=== PATIENT | female | born 1990 | race Caucasian/White ===

== ENCOUNTER 2018-08-01 11:01 | Outpatient (CLI) | payer OTHER ==
[~2018-08-01] VITALS: Ht 162.6 cm; Wt 103.1 kg
[2018-08-01 11:27] VITALS: BP 120/70
[2018-08-01] MEDS ORDERED: PRENTAB9 PO (11:29)
[2018-08-01] MEDS ORDERED: LACTATED RINGER'S 1000 ML IV STA (11:52)
[2018-08-01] MEDS ORDERED: LR 1,000 ML IV SCH (11:52)
[2018-08-01 12:55] VITALS: BP 118/73
--- NOTE | 2018-08-02 17:57 | HPE ---
DATE OF ADMISSION: 08/01/2018 This is a 28-year-old 2, para 1, last menstrual period (LMP) 10/22/2017, estimated date of confinement (EDC) 08/23/2018 at 36 and 6 with a history of contractions. No vaginal loss or bleeding. Risk factors: Her body mass index (BMI) is 35.7. Her past history: June 2012 at 40 weeks - spontaneous vaginal delivery, male, 7 pounds 8 ounces. Labs are A+, HIV negative, hepatitis negative, RPR negative, rubella immune. Varicella immune. Pap is ASCUS. HPV negative. Urine was mixed ferny. Gonorrhea and chlamydia are negative. 1-hour glucose 106. Her 3-hour glucose was 94/97/87/90. GBS is pending. Urine is 1.020, pH 6 and negative. Blood pressure is 118/73, respirations 18, pulse 73 and temperature is 99.0. On evaluation, she does not appear in acute distress. There are [place] contractions noted, and there are accelerations noted. No decelerations. Moderate variability with a normal baseline. She was evaluated on admission to triage, and she was evaluated 3 hours later and basically no change in her cervical status or dilatation, or descent of the presenting part. She was high, posterior, 2 cm thick. No vaginal bleeding or vaginal loss. She was normocephalic, atraumatic. Neck: Full range of motion. Pupils equal and reactive to light. Distal pulses are symmetric. No evidence of deep vein thrombosis (DVT), pulmonary embolism (PE), or superficial phlebitis. Chest is clear bilaterally to bases. No wheezes or rhonchi. Abdomen: Soft. Four quadrant bowel sounds are noted. Nontender. Appropriate symphysis fundus height. She has no rashes, lesions or pruritus. No arthralgia or myalgia. No complaint of joint pain. No complaint of cough, wheezes, shortness of breath or dyspnea on exertion. No history of bruising or bleeding. Neuro complete. No incontinence, urgency or frequency. No nausea, vomiting, diarrhea or constipation. No diabetic issues. 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 Past medical and surgical: Unremarkable. Family history is noncontributory. She does not smoke, drink, abuse drugs. She is . There is no domestic violence and good support system. We planned on discharge undelivered with precautions. She has an appointment at 37 weeks. We told her to maintain that unless there is change, i.e. premature rupture of membranes (PPROM), bleeding or contractions that are 5-7 minutes apart, lasting 40-60 seconds. The patient expressed understanding. I answered all questions, discharged undelivered.
== END 2018-08-01 15:40 | disposition home or self-care (01) ==
LOC: M LDO 11:01
PROVIDERS: ATTEND Obstetrics & Gynecology
DX: O47.03 False labor before 37 completed weeks of gestation, third trimester (principal); Z3A.36 36 weeks gestation of pregnancy
CPT/HCPCS: 59025; G0378; G0463

== ENCOUNTER 2018-08-16 21:10 | Inpatient (IN) | payer OTHER ==
[~2018-08-16] VITALS: Ht 162.6 cm; Wt 106.0 kg
[~2018-08-16 21:10] MED LIST: PRENTAB9 PO
[2018-08-16 21:39] VITALS: BP 131/79
[2018-08-16] MEDS ORDERED: LR 1,000 ML IV SCH (22:35)
[2018-08-16] MEDS ORDERED: LACTATED RINGER'S 1000 ML IV STA (22:35)
--- NOTE | 2018-08-16 22:41 | HPEPDOC ---
Obstetrical History & Physical General Date of Admission Aug 16, 2018 at 22:05 History of Present Illness 28 y/o at 39+0 with LOF since 1999, srill happening. Irreg ctx's all day. Pos FM, no VB. Preg uncomplicated. Care Care: Good Care Dating Final EDC by: LMP, 2nd trimester (US) Past Medical History Past Obstetrical History : Type of Delivery: Spontaneous Vaginal Del. 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 Past Medical History Medical History denies Surgical History: Denies/None Family History Significant Family History: No pertinent family hx Social History Marital Status: Family situation: Spouse/partner home Psychosocial History: No pertinent psych hx * Smoker: non-smoker Alcohol: Denies Drugs: denies Abuse Violence Screening Have you been hit/kicked/slapp: No Have you been sexually assault: No Imunizations Tdap status: current Influenza Status: declined Allergies Coded Allergies: No Known Allergies (Unverified , 08/16/18) Medications Scheduled Multivitamins/ ( 27-0.8 mg) 1 Tab Tab, 1 TAB PO DAILY Physical Examination Physical Examination GENERAL: Alert and oriented times three. ABDOMEN: Gravid and non-tender to touch. FETUS: Is vertex (VTX) by sterile vaginal examination (SVE), LOF with check, 4-5/75/-2 EXTREMITIES: No edema. Vital Signs/I&O Vital Signs Date Time Temp Pulse Resp B/P (MAP) Pulse Ox O2 Delivery O2 Flow Rate FiO2 08/16/18 21:39 99.1 92 18 131/79 (96) Laboratory Data 24H LABS Laboratory Tests 2 08/16/18 22:18: Serology Scanned Report Hepatitis B Testing Urine Culture: Contaminated Pertinent Laboratoy Data Blood Type: A+ RBC Antibody Screen: Negative HIV: Negative Hepatitis B: Negative Hepatitis C: Unknown Rapid Plasma Reagin: Nonreactive Rubella: Immune Varicella: Immune Chlamydia/Gonorrhea: Negative Group B Streptococcus: Negative Quad Screen Test: Negative Cystic Fibrosis: Unknown Anatomy Ultrasound Placenta Location: Posterior Normal Anatomy: Yes Placenta Previa: No Assessment Variability: Moderate Accelerations: Positive Decelerations: None Tocometer Contractions: Yes Frequency: regular Duration: greater than 60 seconds Strength: palpated as moderate Assessment/Plan Assessment SROM 2 hrs ago. Fav cx. Plan on recheck in 3-4 hrs, sooner prn. If no change then will add pitocin Plan Admit and orient. 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 Diet: clrs Group B Streptococcus (GBS) neg Labs and intravenous (IV) per unit protocol. Counseled on Pitocin and induction of labor (IOL). Lactated Ringers (LR): Bolus 1000 mL prior to epidural if desires, then at 125 mL/hr. Anticipate normal spontaneous delivery () C-S as appropriate. Sessions SESSIONS,JASWINDER Law MD Aug 16, 2018 22:41
[2018-08-16 23:35] LABS: HEMOGLOBIN 9.8 g/dl (12.0-15.5); MEAN CORPUSCULAR HEMOGLOBIN 24.5 pg (27.0-33.0); MEAN CORPUSCULAR HGB CONC 30.6 g/dl (32.0-36.5); PLATELET COUNT, AUTOMATED 256 10^3/uL (150-450); WHITE BLOOD COUNT 10.6 10^3/uL (4.0-10.0)
[2018-08-17] VITALS (22 sets, daily range): BP systolic 104–142; BP diastolic 51–89
[2018-08-17] MEDS ORDERED: FENTANYL 2MCG/ML ROPIVACAINE 0.2% IN 0.9% NACL 100ML IVBAG As Ordered ONE (00:50)
[2018-08-17] MEDS ORDERED: EPIDURAL COMMENT XX SCH (02:15)
[2018-08-17] MEDS ORDERED: ePHEDrine SULFATE 25 MG/5 ML(5MG/ML) SYRINGE IV PRN (02:15)
[2018-08-17] MEDS ORDERED: diphenhydrAMINE INJ 50MG/ML VIAL (J1200) IV PRN (02:15)
[2018-08-17] MEDS ORDERED: NALOXONE INJ 0.4 MG/1 ML VIAL (J2310) IV PRN (02:15)
[2018-08-17] MEDS ORDERED: EPIDURAL/PCA KEYS XX PRN (02:15)
[2018-08-17] MEDS ORDERED: LACTATED RINGER'S 1000 ML IV PRN (02:15)
[2018-08-17] MEDS ORDERED: FENTANYL/ROPIVACAINE/NACL BAG 100 ML EPIDURAL SCH (02:15)
[2018-08-17] MEDS ORDERED: REFRIGERATOR IV KEYS XX PRN (02:15)
[2018-08-17] MEDS ORDERED: ONDANSETRON 4MG/2ML VIAL (J2405) IV PRN (02:15)
[2018-08-17] MEDS ORDERED: OXYTOCIN 30 UNITS IN 0.9% NaCl 500ML IV BAG (J2590) As Ordered ONE (03:35)
[2018-08-17] MEDS ORDERED: OXYTOCIN DRIP 30 UNITS in APPROPRIATE DILUENT 1 EA IV SCH (03:59)
[2018-08-17] MEDS ORDERED: METOCLOPRAMIDE INJ 10MG/2ML VIAL (J2765) IV PRN (04:00)
[2018-08-17] MEDS ORDERED: IBUPROFEN 800 MG TAB PO PRN (04:00)
[2018-08-17] MEDS ORDERED: DIBUCAINE 1% OINTMENT 30GM TOP PRN (04:00)
[2018-08-17] MEDS ORDERED: ACETAMINOPHEN TAB 650MG DOSE (2X325MG) PO PRN (04:00)
[2018-08-17] MEDS ORDERED: MEASLES,MUMPS,RUBELLA VACCINE INJ (MMR-II) (90707) SC SCH (04:00)
[2018-08-17] MEDS ORDERED: RHOGAM 300 MCG (1500 IU) INJ (J2790) IM SCH (04:00)
--- NOTE | 2018-08-17 04:05 | DNPDOC ---
[facility] Delivery Note Delivery Note DATE OF DELIVERY: [id number] PREDELIVERY DIAGNOSIS: 39 1/7 weeks' gestation and labor. POST DELIVERY DIAGNOSIS: Delivered. PROCEDURE: Spontaneous vaginal delivery TRANSPORTATION DESIGN ENGINEER: Dr. Silva ANESTHESIA: Epidural ESTIMATED BLOOD LOSS: 200 mL. FINDINGS: 6 pound 5 ounce male , Score 9/9, nuchal cord times 1, loose DELIVERY SUMMARY: Called to room, fully with FHR 90-100's, was previously 8 cm after epidural. Now C/C/+2/JEFFERY. Started pushing and great effort and mvmt, baby nurse called. No delay of the vtx, restituted to LOT. No delay of either sh oulder. Vigorous infant to mother's abd. Cord C.C by FOB. Cord blood. Placenta intact. Fundus firm, pit going at 999. No lacs to vag/per/cx. Uncomplicated. Asiya SILVA,JASWINDER Law MD Aug 17, 2018 04:05
[2018-08-17] MEDS: DOCUSATE SODIUM 100 MG CAP PO SCH ×2 (07:53→21:43)
[2018-08-17] MEDS: PRENATAL VITAMINS CHEWABLE TABLET PO SCH (07:53)
[2018-08-18 06:00] VITALS: BP 117/71
[2018-08-18] MEDS: PRENATAL VITAMINS CHEWABLE TABLET PO SCH (09:35)
[2018-08-18] MEDS: DOCUSATE SODIUM 100 MG CAP PO SCH (09:35)
[2018-08-18] MEDS ORDERED: MAPA500T2 PO (09:58)
[2018-08-18] MEDS ORDERED: COLA100C5 PO (09:58)
[2018-08-18] MEDS ORDERED: IBUP-1114 PO (09:58)
[2018-08-18] MEDS ORDERED: NUPE1OIN2 TOP (09:58)
--- NOTE | 2018-08-18 16:06 | DSES ---
DATE OF ADMISSION: 08/16/2018 DATE OF DISCHARGE: 08/18/2018 A 28-year-old 2,, now para 2, admitted with 39 weeks of gestation, loss of fluid and contractions, had a spontaneous vaginal delivery with epidural in place, live male , 6 pounds 5 ounces. Her admitting hemoglobin was 9.8, hematocrit 32.0 and platelets are 256. VITAL SIGNS ON DISCHARGE: Her blood pressure was 117/71, respirations 16, pulse 72, temperature 98.3. We discussed phlebitis, cystitis, mastitis, endometritis and cellulitis, diet, exercise, pain management, perineal, breast and wound care. The patient is going home with discharge medications. The rest of the examination unremarkable. Normocephalic, atraumatic. Neck: Full range of motion. Pupils equal and reactive to light. Distal pulses symmetric. No evidence of deep venous thrombosis (DVT), pulmonary embolism (PE), superficial phlebitis. Chest is clear bilaterally to bases. No wheezes or rhonchi. Abdomen: Soft. Uterus two below. Lochia is moderate. Perineum is intact. Four quadrant bowel sounds are noted. No rashes, lesions or pruritus. No arthralgia, myalgia. No complaint of cough, wheeze, shortness of breath or dyspnea on exertion. In summary, we have a term gestation, delivered a live male infant, , planned on discharge today.
== END 2018-08-18 14:00 | disposition home or self-care (01) | DRG 807 ==
LOC: M LDO 21:10 → M LDI 22:05 → M OBS 08-17 06:09
PROVIDERS: ADMIT Obstetrics & Gynecology; ATTEND Obstetrics & Gynecology
PROC: 10E0XZZ Delivery of Products of Conception, External Approach (ICD-10-PCS; principal; 2018-08-17)
DX: O80 Encounter for full-term uncomplicated delivery (principal); Z37.0 Single live birth; Z3A.39 39 weeks gestation of pregnancy

== ENCOUNTER 2018-08-26 05:44 | Emergency (ER) | payer OTHER ==
[~2018-08-26] VITALS: Ht 162.6 cm; Wt 106.8 kg
[~2018-08-26 05:44] MED LIST changes: +COLA100C5 PO; +IBUP-1114 PO; +MAPA500T2 PO; +NUPE1OIN2 TOP
[2018-08-26 06:28] LABS: BASO # 0.1 10^3/uL (0.0-0.2); BASO % 0.7 % (0.0-1.0); EOS # 0.2 10^3/uL (0.0-0.50); EOS % 2.8 % (0.0-3.0); HEMATOCRIT 39.9 % (36.0-47.0); HEMOGLOBIN 12.2 g/dl (12.0-15.5); LYMPH % 36.7 % (24.0-44.0); MEAN CORPUSCULAR HEMOGLOBIN 24.4 pg (27.0-33.0); MEAN CORPUSCULAR HGB CONC 30.6 g/dl (32.0-36.5); MONO # 0.5 10^3/uL (0.0-0.8); MONO % 5.8 % (0.0-5.0); NEUTROPHILS # 4.4 10^3/uL (1.8-7.7); NEUTROPHILS % 53.6 % (36.0-66.0); PLATELET COUNT, AUTOMATED 342 10^3/uL (150-450); RED BLOOD COUNT 4.99 10^6/uL (4.00-5.40); WHITE BLOOD COUNT 8.2 10^3/uL (4.0-10.0)
[2018-08-26 06:39] LABS: ALBUMIN 3.5 GM/DL (3.2-5.2); ALT/SGPT 44 U/L (12-78); BILIRUBIN,DIRECT 0.1 MG/DL (0.0-0.2); BILIRUBIN,TOTAL 0.4 MG/DL (0.2-1.0); BLOOD UREA NITROGEN 12 MG/DL (7-18); CALCIUM LEVEL 8.6 MG/DL (8.5-10.1); CARBON DIOXIDE LEVEL 23 MEQ/L (21-32); CHLORIDE LEVEL 108 MEQ/L (98-107); CREATININE FOR GFR 0.94 MG/DL (0.55-1.30); GLOMERULAR FILTRATION RATE > 60.0 (>60); GLUCOSE, FASTING 81 MG/DL (70-100); LIPASE 111 U/L (73-393); POTASSIUM SERUM 3.9 MEQ/L (3.5-5.1); SODIUM LEVEL 141 MEQ/L (136-145); TOTAL PROTEIN 7.7 GM/DL (6.4-8.2)
[2018-08-26 06:46] LABS: AMORPHOUS SEDIMENT SMALL (NEGATIVE); APPEARANCE, URINE HAZY (CLEAR); BACTERIA, URINE AUTO 1+ (NEGATIVE); BILIRUBIN, URINE AUTO NEGATIVE (NEGATIVE); BLOOD, URINE BLOOD 2+ (NEGATIVE); COLOR, URINE YELLOW (YELLOW); GLUCOSE, URINE (UA) AUTO NEGATIVE (NEGATIVE); KETONE, URINE AUTO NEGATIVE (NEGATIVE); LEUKOCYTE ESTERASE, URINE AUTO 2+ (NEGATIVE); MUCUS, URINE SMALL (NEGATIVE); NITRITE, URINE AUTO NEGATIVE (NEGATIVE); PROTEIN, URINE AUTO NEGATIVE (NEGATIVE); RBC, URINE AUTO 2 /HPF (0-3); SPECIFIC GRAVITY URINE AUTO 1.021 (1.002-1.035); SQUAMOUS EPITHELIAL CELL UR AU 2 /HPF (0-6); UROBILINOGEN, URINE AUTO 0.2 mg/dL (0.0-2.0); WBC, URINE AUTO 8 /HPF (0-3)
--- NOTE | 2018-08-26 07:39 | REPVR ---
EXAM: US Pelvis Complete, Transabdominal and US Duplex Artery or Vein, Ovaries, Limited EXAM DATE/TIME: 08/26/2018 6:49 AM CLINICAL HISTORY: 28 years old, female; Pain; Pelvic pain; Additional info: Post LLQ pain TECHNIQUE: Real-time transabdominal pelvic ultrasound with image documentation. Real-time duplex ultrasound scan of the arterial or venous flow of the ovaries with B-mode, color Doppler flow and spectral waveform analysis. Complete Pelvis, Limited Duplex. COMPARISON: No relevant prior studies available. FINDINGS: Uterus/cervix: uterus measuring 12.9 x 6.9 x 8.9 cm. No discrete myometrial mass. The endometrial stripe is normal in thickness measuring 3.8 mm. Right adnexa: The right ovary measures 4.0 x 1.5 x 2.2 cm and is unremarkable in appearance. There is Doppler flow present. Peak systolic velocity 10 cm/s. RI 0.48. Left adnexa: The left ovary measures 2.7 x 3.0 x 1.6 cm and is unremarkable in appearance. There is Doppler flow present. Peak systolic velocity 11.3 cm/sec. RI 0.58. No adnexal masses. Free fluid: No evidence of free fluid. Bladder: Not visualized. IMPRESSION: 1. No acute abnormalities are identified. 2. appearance of the uterus. Normal endometrial stripe. 3. Unremarkable appearance of the ovaries. No sonographic evidence of torsion. Electronically signed by: Darwin Raza On 08/26/2018 07:38:52 AM
[2018-08-26 08:30] VITALS: BP 137/81
== END 2018-08-26 08:32 | disposition home or self-care (01) ==
LOC: EDBD 05:44 → M ED 05:44
DX: O90.89 Other complications of the puerperium, not elsewhere classified (principal); R10.31 Right lower quadrant pain

== ENCOUNTER 2018-09-26 09:44 | Emergency (ER) | payer OTHER ==
[~2018-09-26] VITALS: Ht 162.6 cm; Wt 86.4 kg
[2018-09-26] MEDS ORDERED: COLA100C5 PO (10:04)
--- NOTE | 2018-09-26 10:18 | REP ---
Clinical: Acute chest pain . Comparison: None . Technique: PA and lateral. Findings: The mediastinum and cardiac silhouette are normal. The lung campos are clear and without acute consolidation, effusion, or pneumothorax. The skeletal structures are intact and normal. Impression: 1. No acute cardiopulmonary process. Electronically Signed by Darwin Shafer MD 09/26/2018 10:09 A
[2018-09-26] MEDS ORDERED: ISOVUE-370 76% 100ML VIAL (Q9967) As Ordered ONE (11:02)
--- NOTE | 2018-09-26 11:26 | REP ---
Clinical: Acute chest pain. Technique: Axial contrast enhanced images from the thoracic inlet to the upper abdomen using 100 ml Isovue 370 intravenous contrast material with coronal and sagittal re-formations. Findings: Satisfactory enhancement of the pulmonary vasculature is achieved and no filling defects are identified to suggest pulmonary embolus. Thoracic aorta is normal caliber without aneurysm or dissection. Heart and pericardium are normal. Bilateral lung campos are well aerated and clear without acute pulmonary parenchymal consolidation or atelectasis. No nodule or mass lesion. No pleural effusion/reaction. No pneumothorax. No adenopathy. Impression: No evidence for pulmonary embolus. No acute pleuroparenchymal or mediastinal process. Electronically Signed by Darwin Shafer MD 09/26/2018 11:18 A
[2018-09-26 11:30] VITALS: BP 117/71
--- NOTE | 2018-09-26 18:05 | ECGEPIP ---
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
== END 2018-09-26 11:39 | disposition home or self-care (01) ==
LOC: M ED 09:44 → EDBD 09:44 → M ED 11:39
DX: R07.9 Chest pain, unspecified (principal); K21.9 Gastro-esophageal reflux disease without esophagitis; Z79.899 Other long term (current) drug therapy
CPT/HCPCS: 36415; 71046; 71275; 85379; 93005; 99284; Q9967

== ENCOUNTER 2018-11-08 16:38 | Emergency (ER) | payer OTHER ==
[~2018-11-08] VITALS: Ht 162.6 cm; Wt 92.7 kg
[2018-11-08 17:53] LABS: BASO % 0.3 % (0.0-1.0); EOS # 0.1 10^3/uL (0.0-0.50); EOS % 0.6 % (0.0-3.0); HEMATOCRIT 37.8 % (36.0-47.0); LYMPH # 1.9 10^3/uL (1.5-6.5); LYMPH % 16.7 % (24.0-44.0); MEAN CORPUSCULAR HEMOGLOBIN 27.6 pg (27.0-33.0); MEAN CORPUSCULAR HGB CONC 31.7 g/dl (32.0-36.5); MEAN CORPUSCULAR VOLUME 86.9 fl (80.0-96.0); MONO # 0.8 10^3/uL (0.0-0.8); MONO % 6.5 % (0.0-5.0); NEUTROPHILS # 8.7 10^3/uL (1.8-7.7); PLATELET COUNT, AUTOMATED 234 10^3/uL (150-450); RED BLOOD COUNT 4.35 10^6/uL (4.00-5.40); WHITE BLOOD COUNT 11.6 10^3/uL (4.0-10.0)
--- NOTE | 2018-11-08 18:00 | REP ---
CHEST: Single view. There is no evidence of acute infiltrate. No pleural effusion is seen. The heart is normal in size. The mediastinal silhouette is unremarkable. The visualized osseous structures are intact. IMPRESSION: No acute pulmonary disease. Electronically Signed by Troy Patrick MD 11/08/2018 07:55 P
[2018-11-08 18:27] LABS: ALBUMIN 3.5 GM/DL (3.2-5.2); ALT/SGPT 18 U/L (12-78); BILIRUBIN,DIRECT < 0.1 MG/DL (0.0-0.2); BILIRUBIN,TOTAL 0.3 MG/DL (0.2-1.0); BLOOD UREA NITROGEN 10 MG/DL (7-18); CALCIUM LEVEL 8.7 MG/DL (8.5-10.1); CARBON DIOXIDE LEVEL 29 MEQ/L (21-32); CHLORIDE LEVEL 108 MEQ/L (98-107); CK-MB VALUE MASS < 1.0 NG/ML (<3.6); CPK CREATINE PHOSPHOKINASE 132 U/L (26-192); CREATININE FOR GFR 0.92 MG/DL (0.55-1.30); GLOMERULAR FILTRATION RATE > 60.0 (>60); GLUCOSE, FASTING 90 MG/DL (70-100); LIPASE 123 U/L (73-393); MB/CK RELATIVE INDEX 0.76 (< OR =4); POTASSIUM SERUM 4.1 MEQ/L (3.5-5.1); SODIUM LEVEL 143 MEQ/L (136-145); TOTAL PROTEIN 7.1 GM/DL (6.4-8.2); TROPONIN I < 0.02 NG/ML (< 0.10)
--- NOTE | 2018-11-08 19:43 | REPVR ---
EXAM: US Abdomen Limited, Right Upper Quadrant EXAM DATE/TIME: 11/08/2018 6:40 PM CLINICAL HISTORY: 28 years old, female; Abdominal pain; Acute; Additional info: Ruq pain TECHNIQUE: Imaging protocol: Real-time ultrasound of the abdomen with image documentation. Examination was focused on the right upper quadrant. COMPARISON: No relevant prior studies available. FINDINGS: Liver: Normal. No masses. Gallbladder: The gallbladder is contracted and filled with stones. A positive sonographic Tilley's sign was reported. Common bile duct: Normal. No stones. No dilation. The common bile duct measures 0.4 cm. Pancreas: Mostly obscured due to overlying bowel gas. Right kidney: Normal. No mass. No hydronephrosis. The right kidney measures 11.8 x 3.5 x 4.8 cm. IMPRESSION: Cholelithiasis with positive sonographic Tilley's sign, findings are suggestive of acute cholecystitis. Clinical correlation and surgical consultation are recommended. Electronically signed by: Ashanti Jerez On 11/08/2018 19:42:49 PM
[2018-11-08 19:56] VITALS: BP 112/66
[2018-11-08] MEDS ORDERED: NORC1TAB7 PO (20:02)
[2018-11-08] MEDS ORDERED: AUGM875T28 PO (20:02)
--- NOTE | 2018-11-09 00:09 | ECGEPIP ---
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
== END 2018-11-08 20:20 | disposition home or self-care (01) ==
LOC: EDBD 16:38 → M ED 16:38
DX: K80.42 Calculus of bile duct with acute cholecystitis without obstruction (principal); R00.1 Bradycardia, unspecified; K21.9 Gastro-esophageal reflux disease without esophagitis; Z79.899 Other long term (current) drug therapy

== ENCOUNTER 2018-12-07 19:07 | Emergency (ER) | payer OTHER ==
[~2018-12-07] VITALS: Ht 162.6 cm; Wt 91.8 kg
[~2018-12-07 19:07] MED LIST changes: +AUGM875T28 PO; +NORC1TAB7 PO; +ZANTTAB PO
[2018-12-07] MEDS ORDERED: PANTOPRAZOLE 40MG INJ (PROTONIX) (C9113) IV ONE (20:00)
[2018-12-07] MEDS ORDERED: NS 1,000 ML IV ONE (20:00)
[2018-12-07] MEDS ORDERED: GI COCKTAIL 50ML BTL(HYOSCYAMINE/MAALOX/LIDOCAINE VISCOUS)(1:3:1) PO ONE (20:00)
[2018-12-07 20:47] LABS: BASO # 0.1 10^3/uL (0.0-0.2); BASO % 0.4 % (0.0-1.0); EOS # 0.1 10^3/uL (0.0-0.50); EOS % 0.9 % (0.0-3.0); HEMATOCRIT 39.1 % (36.0-47.0); HEMOGLOBIN 12.2 g/dl (12.0-15.5); LYMPH # 2.4 10^3/uL (1.5-6.5); MEAN CORPUSCULAR HEMOGLOBIN 27.7 pg (27.0-33.0); MEAN CORPUSCULAR HGB CONC 31.2 g/dl (32.0-36.5); MEAN CORPUSCULAR VOLUME 88.9 fl (80.0-96.0); MONO # 0.8 10^3/uL (0.0-0.8); MONO % 6.3 % (0.0-5.0); NEUTROPHILS # 8.8 10^3/uL (1.8-7.7); NEUTROPHILS % 72.1 % (36.0-66.0); PLATELET COUNT, AUTOMATED 223 10^3/uL (150-450); WHITE BLOOD COUNT 12.2 10^3/uL (4.0-10.0)
[2018-12-07] MEDS ORDERED: ONDANSETRON 4MG/2ML VIAL (J2405) As Ordered ONE (20:51)
[2018-12-07 20:55] LABS: HCG, SERUM QUALITATIVE NEGATIVE (NEGATIVE)
[2018-12-07 20:58] LABS: ALBUMIN 3.6 GM/DL (3.2-5.2); ALT/SGPT 17 U/L (12-78); BILIRUBIN,DIRECT < 0.1 MG/DL (0.0-0.2); BILIRUBIN,TOTAL 0.2 MG/DL (0.2-1.0); BLOOD UREA NITROGEN 10 MG/DL (7-18); CALCIUM LEVEL 9.7 MG/DL (8.5-10.1); CARBON DIOXIDE LEVEL 32 MEQ/L (21-32); CHLORIDE LEVEL 105 MEQ/L (98-107); CREATININE FOR GFR 0.85 MG/DL (0.55-1.30); GLOMERULAR FILTRATION RATE > 60.0 (>60); GLUCOSE, FASTING 86 MG/DL (70-100); LIPASE 117 U/L (73-393); POTASSIUM SERUM 4.4 MEQ/L (3.5-5.1); SODIUM LEVEL 140 MEQ/L (136-145); TOTAL PROTEIN 7.5 GM/DL (6.4-8.2)
[2018-12-07] MEDS ORDERED: ONDANSETRON 4MG/2ML VIAL (J2405) IV ONE (21:00)
[2018-12-07] MEDS ORDERED: KETOROLAC 30 MG/ML VIAL (J1885) As Ordered ONE (21:08)
[2018-12-07] MEDS ORDERED: KETOROLAC 30 MG/ML VIAL (J1885) IV ONE (21:15)
--- NOTE | 2018-12-07 22:08 | REPVR ---
EXAM: US Abdomen Limited, Right Upper Quadrant EXAM DATE/TIME: 12/07/2018 9:45 PM CLINICAL HISTORY: 28 years old, female; Abdominal pain; Acute; Additional info: Upper abd pain R/O cholecystitis TECHNIQUE: Imaging protocol: Real-time ultrasound of the abdomen with image documentation. Examination was focused on the right upper quadrant. COMPARISON: GALLBLADDER US 11/08/2018 6:30 PM FINDINGS: Liver: Unremarkable. Gallbladder: Cholelithiasis without gallbladder wall thickening or pericholecystic fluid. Positive sonographic Tilley's sign, as per the project builder. This is a nonspecific finding. Common bile duct: Common bile duct dilatation to approximately 8 mm. No stones. Pancreas: Unremarkable as visualized. Right kidney: No mass. No definite stones. No hydronephrosis. IMPRESSION: 1. Common bile duct dilatation to approximately 8 mm. Correlate with LFTs and, if clinically indicated, ERCP or MRCP. 2. Cholelithiasis without sonographic evidence of acute cholecystitis. Electronically signed by: Luis Alberto Shay On 12/07/2018 22:08:16 PM
[2018-12-07] MEDS ORDERED: MORPHINE 4 MG/ML 1ML VIAL/SYRINGE (J2270) IV ONE (22:45)
[2018-12-07] MEDS ORDERED: ISOVUE-370 76% 100ML VIAL (Q9967) As Ordered ONE (23:02)
--- NOTE | 2018-12-07 23:35 | REPVR ---
EXAM: CT Angiography Chest With Contrast EXAM DATE/TIME: 12/07/2018 10:41 PM CLINICAL HISTORY: 28 years old, female; Right-sided chest pain; Additional info: Right sided pain R/O pe TECHNIQUE: Imaging protocol: Axial computed tomographic angiography images of the chest with intravenous contrast using CT angiography protocol. Coronal and sagittal reformatted images were created and reviewed. 3D rendering: MIP reconstructed images were created and reviewed. Radiation optimization: All CT scans at this facility use at least one of these dose optimization techniques: automated exposure control; mA and/or kV adjustment per patient size (includes targeted exams where dose is matched to clinical indication); or iterative reconstruction. Contrast material: ISO; Contrast volume: 100 ml; Contrast route: AC; COMPARISON: CT ANGIO CHEST 09/26/2018 10:55 AM FINDINGS: Pulmonary arteries: Contrast opacification satisfactory. No intraluminal filling defect. Aorta: Unremarkable. No aneurysm or dissection. Lungs: Unremarkable. No consolidation. No mass. Pleural space: Unremarkable. No pneumothorax. No pleural effusion. Heart: Mild cardiomegaly. No pericardial effusion. Lymph nodes: No pathologically enlarged lymph nodes. Bones/joints: No acute osseous abnormality. Soft tissues: Unremarkable. IMPRESSION: 1. No CT evidence of pulmonary embolism. 2. Additional findings, as above. Electronically signed by: Luis Alberto Shay On 12/07/2018 23:35:42 PM
--- NOTE | 2018-12-08 00:01 | REPVR ---
EXAM: CT Abdomen and Pelvis With Contrast EXAM DATE/TIME: 12/07/2018 10:41 PM CLINICAL HISTORY: 28 years old, female; Abdominal pain; Localized; Right; Additional info: Right sided pain TECHNIQUE: Imaging protocol: Axial computed tomography images of the abdomen and pelvis with intravenous contrast. Coronal and sagittal reformatted images were created and reviewed. Radiation optimization: All CT scans at this facility use at least one of these dose optimization techniques: automated exposure control; mA and/or kV adjustment per patient size (includes targeted exams where dose is matched to clinical indication); or iterative reconstruction. Contrast material: ISO; Contrast volume: 100 ml; Contrast route: AC; COMPARISON: US PELVIC NON-OB COMPLETE 08/26/2018 6:41 AM FINDINGS: ABDOMEN: Liver: Unremarkable. Gallbladder and bile ducts: No radiodense gallstones. No biliary ductal dilatation. Pancreas: Unremarkable. Spleen: Unremarkable. Adrenals: Unremarkable. Kidneys and ureters: No mass. No radiodense calculi. No hydronephrosis. Stomach and bowel: No bowel wall thickening. No obstruction. No pneumatosis. Appendix: Normal. PELVIS: Bladder: Unremarkable. Reproductive: Probable involuting right ovarian corpus luteal cyst. ABDOMEN and PELVIS: Intraperitoneal space: No free fluid. No organized fluid collection. No free air. Bones/joints: No acute osseous abnormality. Soft tissues: Small, fat-containing umbilical hernia. Vasculature: Unremarkable. No aneurysm. Lymph nodes: Small mesenteric lymph nodes, nonspecific in appearance. No pathologically enlarged lymph nodes. IMPRESSION: 1. Probable involuting right ovarian corpus luteal cyst. 2. Additional findings, as above. Electronically signed by: Luis Alberto Shay On 12/08/2018 00:01:10 AM
[2018-12-08] MEDS ORDERED: ERTAPENEM SODIUM 1 GM in NS MINI-BAG PLUS 50 ML IV ONE (00:30)
[2018-12-08] MEDS ORDERED: AUGM875T28 PO (00:51)
[2018-12-08] MEDS ORDERED: ZOFR4TAB16 PO (01:17)
[2018-12-08 01:18] VITALS: BP 126/84
[2018-12-08] MEDS ORDERED: ONDANSETRON 4 MG ORAL DISINTEGRATING TAB (Q0162 PER 1MG) PO ONE (01:30)
--- NOTE | 2018-12-08 10:42 | ED PDOC ---
Post-Departure Follow-Up dr chowdhury faxed formal report of us for fu Vijay Cee MD Dec 08, 2018 10:42
== END 2018-12-08 01:23 | disposition home or self-care (01) ==
LOC: M ED 19:07
DX: K80.50 Calculus of bile duct without cholangitis or cholecystitis without obstruction (principal); Z72.0 Tobacco use; Z79.899 Other long term (current) drug therapy
CPT/HCPCS: 71275; 74177; 76705; 80048; 80076; 83690; 84703; 85025; 93041; 96374; 96375; 99284; C9113; J1335; J1885; J2270; J2405; Q0162; Q9967

== ENCOUNTER 2018-12-15 08:55 | Day surgery (SDC) | payer OTHER ==
[~2018-12-15] VITALS: Ht 162.6 cm; Wt 89.7 kg
[~2018-12-15 08:55] MED LIST changes: +AMPICILLIN SOD/SULBACTAM SOD 3 GM in D5W MINI-BAG PLUS 100 ML IV ONE; +LR 1,000 ML IV SCH; +ZOFR4TAB16 PO
[2018-12-15 10:01] LABS: URINE PREG TEST NEGATIVE (NEGATIVE)
[2018-12-15 10:08] LABS: ALBUMIN 4.1 GM/DL (3.2-5.2); ALT/SGPT 26 U/L (12-78); BILIRUBIN,TOTAL 0.5 MG/DL (0.2-1.0); BLOOD UREA NITROGEN 13 MG/DL (7-18); CARBON DIOXIDE LEVEL 26 MEQ/L (21-32); CHLORIDE LEVEL 110 MEQ/L (98-107); CREATININE FOR GFR 0.93 MG/DL (0.55-1.30); GLOMERULAR FILTRATION RATE > 60.0 (>60); GLUCOSE, FASTING 85 MG/DL (70-100); POTASSIUM SERUM 5.1 MEQ/L (3.5-5.1); SODIUM LEVEL 142 MEQ/L (136-145); TOTAL PROTEIN 7.7 GM/DL (6.4-8.2)
[2018-12-15] MEDS ORDERED: BUPIVACAINE HCL 0.25% 30 ML VIAL As Ordered ONE (11:02)
[2018-12-15] MEDS ORDERED: LIDOCAINE 1% SDV INJ 30 ML VIAL As Ordered ONE (11:02)
[2018-12-15] MEDS ORDERED: KETOROLAC 60 MG/2 ML VIAL (J1885) As Ordered ONE (11:29)
[2018-12-15] MEDS ORDERED: MIDAZOLAM INJ 2 MG/2 ML VIAL (J2250) As Ordered ONE (11:29)
[2018-12-15] MEDS ORDERED: PROPOFOL 200 MG/20 ML VIAL As Ordered ONE (11:29)
[2018-12-15] MEDS ORDERED: fentaNYL 250 MCG/5 ML INJECTION (J3010) As Ordered ONE (11:29)
[2018-12-15] MEDS ORDERED: ONDANSETRON 4MG/2ML VIAL (J2405) As Ordered ONE (11:29)
[2018-12-15] MEDS ORDERED: SUGAMMADEX SODIUM 500 MG/5 ML VIAL (BRIDION) As Ordered ONE (11:29)
[2018-12-15] MEDS ORDERED: LIDOCAINE 2% INJ 100 MG/5 ML SDV (FOR ANES.) As Ordered ONE (11:29)
[2018-12-15] MEDS ORDERED: METOCLOPRAMIDE INJ 10MG/2ML VIAL (J2765) As Ordered ONE (11:29)
[2018-12-15] MEDS ORDERED: ROCURONIUM BROMIDE 50 MG/5 ML VIAL As Ordered ONE (11:29)
[2018-12-15] MEDS ORDERED: dexameTHASONE 4 MG/ML 1ML VIAL (J1100) As Ordered ONE (11:29)
[2018-12-15] MEDS ORDERED: ACETAMINOPHEN 1000MG 100ML IV BTL (OFIRMEV) (J0131 PER 10MG) As Ordered ONE (11:30)
[2018-12-15] MEDS ORDERED: NORCO, ANEXSIA 5/325MG TABLET (HYDROcodone/ACETAMINOPHEN) PO PRN ×2 (13:45)
[2018-12-15] MEDS ORDERED: LR 1,000 ML IV SCH (13:45)
[2018-12-15] MEDS ORDERED: KETOROLAC 30 MG/ML VIAL (J1885) IV PRN (13:45)
[2018-12-15] MEDS ORDERED: fentaNYL 100 MCG/2 ML INJECTION (J3010) IV PRN (13:45)
[2018-12-15] MEDS ORDERED: oxyCODONE 5MG TAB PO PRN (13:45)
[2018-12-15] MEDS ORDERED: ONDANSETRON 4MG/2ML VIAL (J2405) IV PRN ×2 (13:45)
[2018-12-15 15:55] VITALS: BP 122/67
--- NOTE | 2018-12-17 09:43 | ROOPDOC ---
[facility] Report Of Operation Report of Operation DATE OF PROCEDURE: 12/15/18 PREPROCEDURE DIAGNOSES: Cholelithiasis, right upper quadrant abdominal pain. POSTPROCEDURE DIAGNOSES: Cholelithiasis, biliary colic, mild chronic ch olecystitis. PROCEDURE: Robotic-assisted laparoscopic cholecystectomy. SURGEON: Juan Mccurdy MD LEGAL ADMINISTRATOR: Yelitza House, MANAGER PRODUCT House assisted me with placement of the ports, management of the robotic tower and instruments on the field while I was at the surgeon's console, closure of the incisions. ANESTHESIA: Gen. anesthesia. ESTIMATED BLOOD LOSS: Approximately 10 mL. COMPLICATIONS: None. REMARKS: 28-year-old female with intermittent episodes of epigastric and right upper quadrant pain consistent with biliary colic attacks with multiple presentations to the knee. It turned out she went to the emergency room last wee k 12/07/2018 with no biliary colic attack. PROCEDURE NOTE: Markedly protuberant abdomen. The gallbladder is located deep subhepatic. Moderately distended gallbladder with relatively thin-walled. Multiple stones lodged in the neck the gallbladder also at the proximal cystic duct. ICG dye was used to visualize the course of the gallbladder, cystic duct and common bile duct. DESCRIPTION OF PROCEDURE: Patient was given a dose Unasyn 3 g IV preoperatively for prophylaxis. She was given a dose of ICG 5 mg IV with 10 mL NS flush 45 minutes prior to the procedure. She was brought to the operating room, laid supine on the table, compression boots placed for DVT prophylaxis. General endotracheal anesthesia started. Her abdomen then prepped and draped in usual sterile fashion. We paused for a surgical timeout using both pre-incision safety checklist to verify correct patient, procedure site and additional clinical information prior to beginning the procedure. Entry to the abdomen done through a small incision at the left upper quadrant area. A Veress needle is inserted on a controlled fashion. CO2 insufflation started to pressure 15 mmHg. Using the same incision a 8 mm optical trocar was then placed under direct vision of laparoscope. The insertion site was inspected for injury and none was found. Patient was then positioned on a reverse trendelenburg position with her right side tilted up to further expose the gallbladder and gallbladder fossa and retract the bowels away from the area. I then placed 3 working ports under direct vision just to the left of the umbilicus and in a straight line at the right midclavicular area and right anterior axillary line in an oblique direction to triangulate the gallbladder and line up the instrument ports. The da Renan Xi robotic tower was then maneuvered in place, the trochars were docked onto the robotic arms, the camera and instruments and up for the procedure. Operative findings: Her liver is noted to be smooth in contour no nodularities or lesions found. Her gallbladder is mildly thickened, moderately distended. There were loose stones visible at the neck of the gallbladder. The gallbladder itself is located slightly more subhepatically. The fundus of the gallbladder was grasped and the gallbladder was elevated superiorly exposing the neck of the gallbladder. The peritoneum overlying the area was opened up and dissected free both anteriorly and posteriorly to help with retraction of the gallbladder. The hepatocystic triangle was approached and dissected using a forced bipolar instrument and robotic hook cautery. The cystic duct was identified coming off from the neck gallbladder this was circumfere ntially dissected. The cystic artery was identified in its usual position medially behind a small lymph node of [place]. This was similarly circumferentially dissected off surrounding adipose tissue. We continued posterior dissection proximally at the neck of the gallbladder until a critical view of safety was achieved whereby only the previously identified duct and artery coursing through the neck the gallbladder. The lower body and neck of the gallbladder was coming off the liver plate early that the gallbladder itself seems to be just adhered at the liver plate starting at the lower body of the gallbladder. I switched views with firefly to determine and visualized the course of the cystic duct, likewise the common bile duct. Photodocumentation was done of the critical view of safety. At this point the cystic artery was clipped 2 times and divided. After again checking her anatomy and verifying that the previously identified cystic duct with firefly view, this was also clipped 3 times and divided (2 hemoclips downstream and one Hemoclip upstream). The rest of the gallbladder was then dissected free of the gallbladder bed using Bovie cautery. There was no bleeding at the liver bed with midway through dissection the relatively thin-walled gallbladder at the fundus had small amount of bile leaking out. The gallbladder was detached from the liver plate and placed into an Endobag. I scrubbed back in. The gallbladder was extracted from the umbilical port site with slight blunt enlargement of the trocar site using Colleen forceps. After re-insufflation I inspected the clips and noted this to be in place. No bleeding noted at the liver bed. The abdomen was irrigated and the small amount of bile that leaked suctioned off. The abdomen was deflated all ports were removed. The umbilical fascial defect repaired with 0 Vicryl in a mattress fashion. Rest of the skin incisions closed with 4-0 Monocryl in subcuticular fashion. Dermabond was used to cover the port site incisions Patient was awakened, extubated and brought to recovery room stable. . JUAN MCCURDY MD Dec 17, 2018 09:43
== END 2018-12-15 16:40 | disposition home or self-care (01) ==
LOC: M SDC 08:55
PROVIDERS: ATTEND Surgery
DX: K82.4 Cholesterolosis of gallbladder (principal); K80.20 Calculus of gallbladder without cholecystitis without obstruction; K21.9 Gastro-esophageal reflux disease without esophagitis; F17.290 Nicotine dependence, other tobacco product, uncomplicated; Z79.899 Other long term (current) drug therapy
CPT/HCPCS: 36415; 47562; 80053; 84703; 88304; J0131; J1100; J1885; J2250; J2405; J2765; J3010